=== PATIENT | male | born 1950 | race Two or more races ===

== ENCOUNTER 2021-12-28 15:02 | Inpatient (IN) | payer MEDICARE, OTHER ==
[~2021-12-28] VITALS: Ht 182.9 cm; Wt 64.0 kg
--- NOTE | 2021-12-28 15:17 | NUR ---
PATIENT FROM [facility]-[phone]
--- NOTE | 2021-12-28 15:17 | NUR ---
To ER bed 8, anselmo TERAN from SNf for worsening cough and congestion and chf, aaox3, breathing even and non labored, connected to monitor, awaiting md rees
--- NOTE | 2021-12-28 15:24 | NUR ---
DR ECHEVERRIA AT BEDSIDE
--- NOTE | 2021-12-28 15:46 | NUR ---
COVID SWAB DONE AND SENT TO LAB
[2021-12-28] MEDS ORDERED: CARB1TAB21 PO (16:01)
[2021-12-28] MEDS ORDERED: ROSU5TAB PO (16:01)
[2021-12-28] MEDS ORDERED: GABA-532 PO (16:01)
[2021-12-28] MEDS ORDERED: LOSA50TA39 PO (16:01)
[2021-12-28] MEDS ORDERED: TIZA4TAB5 PO (16:01)
[2021-12-28] MEDS ORDERED: SENN-291 PO (16:01)
[2021-12-28] MEDS ORDERED: MAGN400O6 PO (16:01)
[2021-12-28] MEDS ORDERED: CYAN100096 PO (16:01)
[2021-12-28] MEDS ORDERED: CHOL50002 PO (16:01)
[2021-12-28] MEDS ORDERED: MULT-439 PO (16:01)
[2021-12-28] MEDS ORDERED: CARV3.12 PO (16:01)
[2021-12-28] MEDS ORDERED: IPRA3AMP23 IH (16:01)
[2021-12-28] MEDS ORDERED: AMLO5TAB4 PO (16:01)
[2021-12-28] MEDS ORDERED: OMEP40CA21 PO (16:01)
[2021-12-28] MEDS ORDERED: ACET325T53 PO (16:01)
--- NOTE | 2021-12-28 16:09 | NUR ---
CALLED NURSE SUP FOR MIDLINE NURSE
[2021-12-28 16:18] LABS: HEMATOCRIT 35 % (39-51); HEMOGLOBIN 11.7 g/dL (13.5-17.5); MEAN CORPUSCULAR HGB CONC 34 g/dl (31.0-36.0); MEAN CORPUSCULAR VOLUME 91 fL (80-96); PLATELET COUNT (AUTO) 251 K/uL (150-450); WHITE BLOOD COUNT (AUTO) 4.1 K/uL (4.3-11.0)
[2021-12-28 16:19] LABS: BASOPHILS % (AUTO) 1.2 % (0.0-2.0); EOSINOPHILS % (AUTO) 3.1 % (0.0-6.0); LYMPHOCYTES # (AUTO) 1.5 K/uL (0.8-4.8); LYMPHOCYTES % (AUTO) 37.8 % (20.0-44.0); MONOCYTES # (AUTO) 0.4 K/uL (0.1-1.30); MONOCYTES % (AUTO) 10.9 % (2.0-12.0); NEUTROPHILS # (AUTO) 1.9 K/uL (1.8-8.9)
[2021-12-28] MEDS ORDERED: ACETAMINOPHEN 325 MG TABLET ONE (16:23)
--- NOTE | 2021-12-28 16:25 | NUR ---
BOILERMAKER INDUSTRIAL BOILERS AT BEDSIDE FOR XRAY
[2021-12-28 16:29] LABS: CALCIUM, SERUM 9.3 mg/dL (8.5-10.1); CARBON DIOXIDE 30 mmol/L (21-32); CHLORIDE 100 mmol/L (98-107); CREATININE 0.7 mg/dL (0.6-1.3); GLUCOSE 98 mg/dL (74-106); POTASSIUM 4.2 mmol/L (3.5-5.1); SODIUM SERUM 134 mmol/L (136-145); UREA NITROGEN, BLOOD 8 mg/dL (7-18)
[2021-12-28] MEDS ORDERED: ACETAMINOPHEN 325 MG TABLET PO ONE (16:30)
[2021-12-28 16:44] LABS: ALANINE AMINOTRANSFERASE 11 U/L (12-78); ALBUMIN 3.8 g/dL (3.4-5.0); ALKALINE PHOSPHATASE 68 U/L (46-116); ASPARTATE AMINOTRANSFERASE 21 U/L (15-37); BILIRUBIN,DIRECT 0.1 mg/dL (0.0-0.2); BILIRUBIN,TOTAL 0.3 mg/dL (0.2-1.0); TOTAL PROTEIN, SERUM 8.3 g/dL (6.4-8.2)
--- NOTE | 2021-12-28 16:59 | NUR ---
MIDLINE NURSE AT BEDSIDE
[2021-12-28] MEDS ORDERED: FUROSEMIDE 20 MG/2 ML VIAL IV ONE (18:30)
[2021-12-28] MEDS ORDERED: Medication Not On Formulary EA (Ipratropium/Albuterol Sulfate (Duoneb 2.5-0.5 Mg/3 Ml So IH SCH (18:30)
[2021-12-28] MEDS ORDERED: ACETAMINOPHEN 325 MG TABLET PO PRN (18:30)
[2021-12-28] MEDS ORDERED: CHOLECALCIFEROL PO SCH (18:30)
[2021-12-28] MEDS ORDERED: ONDANSETRON HCL/PF 4 MG/2 ML VIAL IVP PRN (18:30)
[2021-12-28] MEDS ORDERED: MAG HYDROX/AL HYDROX/SIMETH 30 ML UDC PO PRN (18:30)
[2021-12-28] MEDS ORDERED: Z GUARD REMEDY 4 OZ OINT TP PRN (18:30)
--- NOTE | 2021-12-28 18:30 | NUR ---
BED 304-1
--- NOTE | 2021-12-28 18:36 | NUR ---
REPORT GIVEN TO KARIN CANADA OF TELE UNIT
--- NOTE | 2021-12-28 19:30 | NUR ---
MINING TEACHER OPENING NOTE RECEIVED PATIENT IN BED; AWAKE, ALERT AND ORIENTED X 3. BREATHING EVEN AND NONLABORED. ON ROOM AIR; TOLERATING WELL. NOT IN ANY FORM OF RESPIRATORY DISTRESS. ABLE TO MAKE NEEDS KNOWN. WITH MIDLINE @ RIGHT UPPER ARM 18g; PATENT, INTACT AND SALINE LOCKED. SAFETY MEASURES IMPLEMENTED: CALL LIGHT AND TABLE WITH REACH, SIDE RAILS UP X2, BED IN LOWEST LOCKED POSITION. WILL CONTINUE PLAN OF CARE.
[2021-12-28 20:00] VITALS: BP 146/76
[2021-12-28] MEDS: HYDROMORPHONE 1 MG/1 ML DISP.SYRIN IV PRN (20:29)
[2021-12-28] MEDS: ALBUTEROL FS 2.5 MG/0.5 ML VIAL.NEB NEB SCH (20:31)
[2021-12-28] MEDS: IPRATROPIUM NEB FS 0.5 MG/2.5 ML AMPUL.NEB NEB SCH (20:31)
[2021-12-28] MEDS: ATORVASTATIN 10 MG TABLET PO SCH (21:30)
[2021-12-28] MEDS ORDERED: ZOLPIDEM TARTRATE 5 MG TABLET PO PRN (22:00)
[2021-12-28] MEDS ORDERED: Medication Not On Formulary EA (Rosuvastatin Calcium (Crestor) 5 MG) PO SCH (22:00)
[2021-12-28] MEDS ORDERED: MAGNESIUM HYDROXIDE 30 ML UDC PO PRN (22:00)
[2021-12-29] VITALS: BP 127/63
[2021-12-29] MEDS: IPRATROPIUM NEB FS 0.5 MG/2.5 ML AMPUL.NEB NEB SCH ×4 (01:17→20:16)
[2021-12-29] MEDS: ALBUTEROL FS 2.5 MG/0.5 ML VIAL.NEB NEB SCH ×4 (01:17→20:16)
[2021-12-29] MEDS: HYDROMORPHONE 1 MG/1 ML DISP.SYRIN IV PRN ×2 (02:40→10:59)
[2021-12-29 04:00] VITALS: BP 109/58
--- NOTE | 2021-12-29 06:50 | NUR ---
HEALTH INSURANCE ADJUSTER CLOSING NOTE PATIENT IN BED; AWAKE, A/O X 3. BREATHING EVEN AND NONLABORED. STABLE ON ROOM AIR. IN NO ACUTE DISTRESS. WITH MIDLINE @ RIGHT UPPER ARM 18g; PATENT, INTACT AND SALINE LOCKED. ALL NEEDS MET SAFETY MEASURES IN PLACE: CALL LIGHT AND TABLE WITH REACH, SIDE RAILS UP X2, BED IN LOWEST LOCKED POSITION. ENDORSED TO ANI RN FOR GERMAN.
--- NOTE | 2021-12-29 07:29 | NUR ---
CLIPPER MACHINE OPERATOR OPENING NOTES RECEIVED PATIENT SLEEPS IN BED. OPENS HIS EYES UPON CALLING HIS NAME. PATIENT IS ALERT AND ORIENTED TIMES 3. NO PAIN NOTED. NO SOB NOTED. NO DISTRESS NOTED. ON TELE MONITOR READING SR 60. IV ACCESS ON THE RIGHT UPPER MIDLINE INTACT. PATIENT AMBULATORY AND USING URINAL. ALL THE SAFETY MEASURES IN PLACE. BED LOCKED IN THE LOWEST POSITION. CALL LIGHT AND TABLE IN EASY REACH. WILL CONTINUE TO MONITOR.
[2021-12-29 08:00] VITALS: BP 117/60
[2021-12-29] MEDS: PANTOPRAZOLE 40 MG TABLET.DR PO SCH (08:01)
[2021-12-29] MEDS: TIZANIDINE HCL 4 MG TABLET PO SCH ×3 (08:21→16:50)
[2021-12-29] MEDS: CYANOCOBALAMIN 500 MCG TABLET PO SCH (08:21)
[2021-12-29] MEDS: GABAPENTIN 100 MG CAPSULE PO SCH ×3 (08:21→16:50)
[2021-12-29] MEDS: MULTIVIT W/MINERALS 1 TAB TABLET PO SCH (08:21)
[2021-12-29] MEDS: CARBIDOPA/LEVODOPA 25/100 MG 1 UDTAB PO SCH ×3 (08:21→16:50)
[2021-12-29] MEDS: MAGNESIUM HYDROXIDE 30 ML UDC PO SCH ×2 (08:22→08:54)
[2021-12-29] MEDS: CARVEDILOL 3.125 MG TABLET PO SCH ×2 (08:22→16:49)
[2021-12-29] MEDS: LOSARTAN POTASSIUM 50 MG TABLET PO SCH (08:22)
[2021-12-29] MEDS: AMLODIPINE BESYLATE 5 MG TABLET PO SCH (08:22)
[2021-12-29] MEDS ORDERED: CYANOCOBALAMIN 1000 MCG PO SCH (09:00)
[2021-12-29] MEDS ORDERED: Medication Not On Formulary EA (Omeprazole 40 MG) PO SCH (09:00)
[2021-12-29] MEDS ORDERED: CARBIDOPA/LEVODOPA 25/100 MG 1 UDTAB PO SCH (09:00)
[2021-12-29] MEDS ORDERED: Medication Not On Formulary EA (Multivitamins W-Minerals (One Daily Complete) 1 EACH) PO SCH (09:00)
[2021-12-29 11:27] LABS: BASOPHILS % (AUTO) 0.1 % (0.0-2.0); EOSINOPHILS % (AUTO) 1.2 % (0.0-6.0); HEMATOCRIT 31 % (39-51); HEMOGLOBIN 10.5 g/dL (13.5-17.5); LYMPHOCYTES # (AUTO) 1.2 K/uL (0.8-4.8); LYMPHOCYTES % (AUTO) 20.7 % (20.0-44.0); MEAN CORPUSCULAR HGB CONC 34 g/dl (31.0-36.0); MEAN CORPUSCULAR VOLUME 91 fL (80-96); MONOCYTES # (AUTO) 0.7 K/uL (0.1-1.30); NEUTROPHILS # (AUTO) 3.8 K/uL (1.8-8.9); PLATELET COUNT (AUTO) 256 K/uL (150-450); RED BLOOD CELL COUNT(AUTO) 3.39 MIL/uL (4.5-6.0); WHITE BLOOD COUNT (AUTO) 5.8 K/uL (4.3-11.0)
[2021-12-29 11:42] LABS: CALCIUM, SERUM 8.7 mg/dL (8.5-10.1); CREATININE 0.7 mg/dL (0.6-1.3); PHOSPHORUS 4.2 mg/dL (2.5-4.9); POTASSIUM 3.5 mmol/L (3.5-5.1)
[2021-12-29 12:00] VITALS: BP 123/98
[2021-12-29 16:00] VITALS: BP 98/50
[2021-12-29] MEDS: HYDROMORPHONE INJ 2 MG/ML DISP.SYRIN IV PRN (17:39)
[2021-12-29] MEDS: SENNOSIDES 8.6 MG TABLET PO SCH (18:00)
[2021-12-29] MEDS: DOCUSATE SODIUM 100 MG CAPSULE PO SCH (18:00)
[2021-12-29] MEDS ORDERED: SENNOSIDES/DOCUSATE SODIUM 1 UDTAB TABLET PO SCH (18:00)
[2021-12-29 20:00] VITALS: BP 118/59
[2021-12-29] MEDS: ATORVASTATIN 10 MG TABLET PO SCH (21:12)
[2021-12-30] VITALS: BP 129/42
[2021-12-30] MEDS: HYDROMORPHONE INJ 2 MG/ML DISP.SYRIN IV PRN ×3 (00:26→18:18)
[2021-12-30] MEDS: IPRATROPIUM NEB FS 0.5 MG/2.5 ML AMPUL.NEB NEB SCH ×4 (01:30→20:01)
[2021-12-30] MEDS: ALBUTEROL FS 2.5 MG/0.5 ML VIAL.NEB NEB SCH ×4 (01:30→20:01)
[2021-12-30] MEDS: ACETAMINOPHEN 325 MG TABLET PO PRN ×2 (03:15→23:02)
[2021-12-30 04:00] VITALS: BP 110/52
--- NOTE | 2021-12-30 06:25 | NUR ---
DIRECTOR OF OUTSIDE SALES CLOSING NOTES PATIENT SLEEPS IN BED. OPENS HIS EYES UPON CALLING HIS NAME. PATIENT IS ALERT AND ORIENTED TIMES 3. NO PAIN NOTED. NO SOB NOTED. NO DISTRESS NOTED. ON TELE MONITOR READING SR . IV ACCESS ON THE RIGHT UPPER MIDLINE INTACT. PATIENT AMBULATORY AND USING URINAL. ALL DUE MEDS GIVEN ORDERED. ALL THE SAFETY MEASURES IN PLACE. BED LOCKED IN THE LOWEST POSITION. CALL LIGHT AND TABLE IN EASY REACH. WILL ENDORSE FOR GERMAN.
--- NOTE | 2021-12-30 07:26 | NUR ---
WOOL TAMPER OPENING NOTE RECEIVED PT ASLEEP IN BED, EASILY AROUSED. PT A/O X3, ABLE TO MAKE NEEDS KNOWN. ON RA, TOLERATING WELL. NO SOB NOTED. NOT IN ANY SIGN OF RESPIRATORY DISTRESS. ON TELE DISTRICT COURT JUSTICE WITH CURRENT READING OF SINUS RHYTHM WITH PACS AND PVCS, HR 58. NO C/O CARDIAC DISTRESS VOICED OUT AT THIS TIME. IV ACCESS IN JOSEPH MIDLINE SALINE LOCK, INTACT AND PATENT. SAFETY MEASURES IN PLACE: BED IN LOWEST AND LOCKED POSITION, SIDE RAILS UPX2, BED ALARM ON, AND CALL LIGHT WITHIN REACH. WILL CONTINUE TO MONITOR PT.
[2021-12-30 08:00] VITALS: BP 102/50
[2021-12-30] MEDS: PANTOPRAZOLE 40 MG TABLET.DR PO SCH (08:26)
[2021-12-30] MEDS: LOSARTAN POTASSIUM 50 MG TABLET PO SCH (09:00)
[2021-12-30] MEDS: AMLODIPINE BESYLATE 5 MG TABLET PO SCH (09:00)
[2021-12-30] MEDS: CARVEDILOL 3.125 MG TABLET PO SCH ×2 (09:00→17:00)
[2021-12-30] MEDS: CYANOCOBALAMIN 500 MCG TABLET PO SCH (09:13)
[2021-12-30] MEDS: CARBIDOPA/LEVODOPA 25/100 MG 1 UDTAB PO SCH ×3 (09:13→17:17)
[2021-12-30] MEDS: MULTIVIT W/MINERALS 1 TAB TABLET PO SCH (09:13)
[2021-12-30] MEDS: GABAPENTIN 100 MG CAPSULE PO SCH ×3 (09:13→17:17)
[2021-12-30] MEDS: MAGNESIUM HYDROXIDE 30 ML UDC PO SCH (09:14)
[2021-12-30] MEDS: TIZANIDINE HCL 4 MG TABLET PO SCH ×3 (09:14→17:17)
--- NOTE | 2021-12-30 11:15 | NUR ---
RN NOTE PT C/O BACK PAIN WITH PAIN SCALE LEVEL OF 8/10 AND REQUESTED FOR DILAUDID. DILAUDID 2MG ADMINISTERED ORDERED Q6HRS FOR SEVERE PAIN. WILL MONITOR AND REASSESS PT.
[2021-12-30 16:00] VITALS: BP 124/60
[2021-12-30] MEDS: SENNOSIDES 8.6 MG TABLET PO SCH (17:17)
[2021-12-30] MEDS: DOCUSATE SODIUM 100 MG CAPSULE PO SCH (17:17)
--- NOTE | 2021-12-30 18:20 | NUR ---
RN NOTE PT C/O BACK PAIN WITH PAIN SCALE LEVEL OF 8/10 AND REQUESTED FOR DILAUDID. DILAUDID 2MG ADMINISTERED ORDERED Q6HRS FOR SEVERE PAIN. CURRENT BP IS 119/68, R 18. WILL MONITOR AND REASSESS PT.
--- NOTE | 2021-12-30 18:52 | NUR ---
TIE UP WORKER CLOSING NOTE PT AWAKE AND RESTING IN BED. PT A/O X3, ABLE TO MAKE NEEDS KNOWN. ON RA, TOLERATING WELL. NO SOB NOTED. NOT IN ANY SIGN OF RESPIRATORY DISTRESS. PT REMOVED HIS TELE SUPERVISOR DECORATING AND REFUSED TO PUT IT BACK ON. EXPLAINED RISK AND BENEFITS X3, STILL STRONGLY REFUSED. PER PT IT'S UNCOMFORBLE IN HIS BODY. NO C/O CARDIAC DISTRESS VOICED OUT AT THIS TIME. TELE BOX GIVEN TO STONECUTTER ASSISTANT, DAVID. IV ACCESS IN JOSEPH MIDLINE SALINE LOCK, INTACT AND PATENT. ALL NEEDS ATTENDED. KEPT CLEAN AND COMFORTABLE. SAFETY MEASURES IN PLACE: BED IN LOWEST AND LOCKED POSITION, SIDE RAILS UPX2, BED ALARM ON, AND CALL LIGHT WITHIN REACH. WILL ENDORSE TO DOMINIK KAPADIA NURSE FOR GERMAN.
--- NOTE | 2021-12-30 19:27 | NUR ---
RN OPENING NOTES RECEIVED PT SITTING IN BED, AWAKE, EATING AND WATCHING TV. AOx3, ABLE TO MAKE NEEDS KNOWN. ON RA AND TOLERATING WELL. NO SOB NOTED. NO S/SX OF RESPIRATORY DISTRESS NOTED. PT REFUSES TELE MONITOR. IV ACCESS IN JOSEPH MIDLINE. IV IS INTACT, PATENT, AND FLUSHING WELL. SAFETY PRECAUTIONS IN PLACE: BED IN LOWEST, LOCKED POSITION, SIDERAILS UPx2, AND BRAKES ON. TABLE AND CALL LIGHT WITHIN REACH. ALL NEEDS MET AT THIS TIME.
[2021-12-30 20:00] VITALS: BP 129/63
[2021-12-30] MEDS: ATORVASTATIN 10 MG TABLET PO SCH (21:03)
--- NOTE | 2021-12-30 23:02 | NUR ---
RN NOTES ADMINISTERED TYLENOL FOR HEADACHE PER PT REQUEST.
[2021-12-31] VITALS: BP 136/73
[2021-12-31] MEDS ORDERED: BENZONATATE 100 MG CAPSULE PO PRN ×2 (01:00)
[2021-12-31] MEDS: HYDROMORPHONE INJ 2 MG/ML DISP.SYRIN IV PRN ×3 (01:05→14:17)
--- NOTE | 2021-12-31 01:05 | NUR ---
RN NOTES ADMINISTERED DILAUDID FOR PAIN PER MD ORDER. VS WNL.
[2021-12-31] MEDS: ALBUTEROL FS 2.5 MG/0.5 ML VIAL.NEB NEB SCH ×3 (01:22→12:45)
[2021-12-31] MEDS: IPRATROPIUM NEB FS 0.5 MG/2.5 ML AMPUL.NEB NEB SCH ×3 (01:23→12:45)
[2021-12-31 04:00] VITALS: BP 126/65
--- NOTE | 2021-12-31 06:50 | NUR ---
RN CLOSING NOTES RECEIVED PT IN BED, ASLEEP, AWAKENS TO VERBAL STIMULI. AOx3, ABLE TO MAKE NEEDS KNOWN. ON RA AND TOLERATING WELL. NO SOB NOTED. NO S/SX OF RESPIRATORY DISTRESS NOTED. PT REFUSES TELE MONITOR. IV ACCESS IN JOSEPH MIDLINE. IV IS INTACT, PATENT, AND FLUSHING WELL. ALL ORDERS CARRIED OUT. ALL NEEDS MET PT KEPT CLEAN AND DRY. SAFETY PRECAUTIONS IN PLACE: BED IN LOWEST, LOCKED POSITION, SIDERAILS UPx2, AND BRAKES ON. TABLE AND CALL LIGHT WITHIN REACH. WILL ENDORSE TO ONCOMING SHIFT FOR GERMAN.
--- NOTE | 2021-12-31 07:20 | NUR ---
CREATIVE SERVICES WRITER OPENING NOTES: RECEIVED PATIENT IN BED ASLEEP, EASILY AROUSED WITH VERBAL STIMULI. PATIENT ALERT AND ORIENTED X 3 AND ABLE TO VERBALIZED NEEDS,NO SOB OR CARDIAC DISTRESS NOTED. PATIENT IS TELE PT BUT REFUSED TO HAVE A MACHINE I TRIMMER. EXPLAINED THE RISK AND BENEFITS, PT VERBALIZED UNDERSTANDING. KEPT RESTED AND COMFORTABLE. SAFETY PRECAUTIONS MAINTAINED: BED LOCKED AND IN LOWEST POSITION. CALL LIGHT IN EASY REACH. WILL MONITOR PT ACCORDINGLY.
[2021-12-31] MEDS: PANTOPRAZOLE 40 MG TABLET.DR PO SCH (07:41)
[2021-12-31 08:00] VITALS: BP 120/53
[2021-12-31] MEDS: CYANOCOBALAMIN 500 MCG TABLET PO SCH (08:13)
[2021-12-31] MEDS: MULTIVIT W/MINERALS 1 TAB TABLET PO SCH (08:13)
[2021-12-31] MEDS: GABAPENTIN 100 MG CAPSULE PO SCH ×2 (08:13→13:04)
[2021-12-31] MEDS: LOSARTAN POTASSIUM 50 MG TABLET PO SCH (08:14)
[2021-12-31] MEDS: TIZANIDINE HCL 4 MG TABLET PO SCH ×2 (08:15→13:04)
[2021-12-31] MEDS: AMLODIPINE BESYLATE 5 MG TABLET PO SCH (08:15)
[2021-12-31] MEDS: CARBIDOPA/LEVODOPA 25/100 MG 1 UDTAB PO SCH ×2 (08:16→13:04)
[2021-12-31 08:21] VITALS: BP 120/53
[2021-12-31] MEDS: CARVEDILOL 3.125 MG TABLET PO SCH (08:21)
[2021-12-31] MEDS: MAGNESIUM HYDROXIDE 30 ML UDC PO SCH (08:22)
--- NOTE | 2021-12-31 08:22 | NUR ---
RN NOTES: PATIENT REFUSED MILK OF MAGNESIA. PATIENT HAD 2 BP MEDS, AND DIASTOLIC IS IN LOWS, HR 60. COREG ON HOLD/REFUSED.
[2021-12-31 10:20] LABS: ABG BASE EXCESS 3.6 mmol/L; ABG PCO2 43.2 mmHg (35.0-45.0); ABG PH 7.434 (7.350-7.450); ABG PO2 60.9 mmHg (75.0-100.0); AaDO2 37.1 mmHg; COHb 0.3 % (0.5-1.5); MetHb 0.2 % (0.0-1.5); O2Hb 90.5 % (94.0-97.0); SITE, ABG Right Radial
[2021-12-31] MEDS ORDERED: ALBU2.5V13 NEB (12:14)
[2021-12-31] MEDS ORDERED: Multivit W/Minerals PO (12:14)
[2021-12-31] MEDS ORDERED: ATOR10TA PO ×2 (12:14→16:05)
[2021-12-31] MEDS ORDERED: IPRA0.2S9 NEB (12:14)
[2021-12-31] MEDS ORDERED: PANT40TA49 PO (12:14)
[2021-12-31] MEDS ORDERED: Carbidopa/Levodopa 25/100 Mg PO (12:14)
[2021-12-31] MEDS ORDERED: CYAN500T64 PO (12:14)
[2021-12-31] MEDS ORDERED: SENN-175 PO (12:14)
[2021-12-31] MEDS ORDERED: DOCU100C36 PO (12:14)
[2021-12-31] MEDS ORDERED: BENZ-38 PO (12:14)
[2021-12-31] MEDS ORDERED: HYDR-3980 PO (12:14)
--- NOTE | 2021-12-31 15:51 | NUR ---
RN NOTES: PATIENT TRANSFERRED TO GPS UNIT. PATIENT ALERT AND ORIENTED X 3 WITH FORGETFULNESS. NO SOB OR CARDIAC DISTRESS NOTED. PHOTOS TAKEN AND FILED TO HIS CHART. ALL BELONGINGS WITH THE PT AND UNABLE TO SIGN BECAUSE HE IS SHAKING. TRANSFERRED PT VIA WHEELCHAIR ACCOMPANIED BY RN AND SPIRAL MACHINE OPERATOR HAD BED SIDE ENDORSEMENT REPORT GIVEN AND PACKET TO [facility]. PT REMAINED STABLE.
[2021-12-31] MEDS ORDERED: IPRA0.2S9 IH (16:05)
[2021-12-31] MEDS ORDERED: DOCU-141 PO (16:05)
[2021-12-31] MEDS ORDERED: ALLA266C2 TP (16:05)
[2021-12-31] MEDS ORDERED: PANT40TA2 PO (16:05)
[2021-12-31] MEDS ORDERED: ERGO500093 PO (16:05)
[2021-12-31] MEDS ORDERED: MAGN400O6 PO (16:05)
[2021-12-31] MEDS ORDERED: MAG30ORA PO (16:05)
[2021-12-31] MEDS ORDERED: SENN-261 PO (16:05)
[2021-12-31] MEDS ORDERED: BENZ200C53 PO (16:05)
[2021-12-31] MEDS ORDERED: ALBU2.5V38 IH (16:05)
[2022-01-01] MEDS ORDERED: ERGOCALCIFEROL (VITAMIN D 2) 50,000 UNIT CAPSULE PO SCH (09:00)
== END 2021-12-31 15:40 | DRG 640 ==
LOC: ER 15:13 → TELE 18:35
PROVIDERS: ADMIT Nurse Practitioner Acute Care; ATTEND Nurse Practitioner Acute Care
PROC: 05H933Z Insertion of Infusion Device into Right Brachial Vein, Percutaneous Approach (ICD-10-PCS; principal; 2021-12-28)
DX: R62.7 Adult failure to thrive (principal); J96.00 Acute respiratory failure, unspecified whether with hypoxia or hypercapnia; I48.20 Chronic atrial fibrillation, unspecified; K21.9 Gastro-esophageal reflux disease without esophagitis; F25.9 Schizoaffective disorder, unspecified; Z86.73 Personal history of transient ischemic attack (TIA), and cerebral infarction without residual deficits; G20 Parkinson's disease; F02.80 Dementia in other diseases classified elsewhere, unspecified severity, without behavioral disturbance, psychotic disturbance, mood disturbance, and anxiety; N40.0 Benign prostatic hyperplasia without lower urinary tract symptoms; R13.10 Dysphagia, unspecified; Z91.81 History of falling; M19.90 Unspecified osteoarthritis, unspecified site; Z88.8 Allergy status to other drugs, medicaments and biological substances; E78.5 Hyperlipidemia, unspecified; Z79.51 Long term (current) use of inhaled steroids; Z79.899 Other long term (current) drug therapy; Z87.311 Personal history of (healed) other pathological fracture; G89.4 Chronic pain syndrome; I10 Essential (primary) hypertension; F39 Unspecified mood [affective] disorder; F03.90 Unspecified dementia, unspecified severity, without behavioral disturbance, psychotic disturbance, mood disturbance, and anxiety
CPT/HCPCS: 36410; 36415; 36600; 71045-TC; 80048-TC; 80076-TC; 82803-TC; 83735-TC; 83880; 84100-TC; 84484-TC; 85025-TC; 85730-TC; 87081-TC; 92526; 92611-TC; 93307-TC; C9803; G0378; J1170; J1940

== ENCOUNTER 2021-12-31 15:15 | Inpatient (IN) | payer MEDICARE, OTHER ==
[~2021-12-31] VITALS: Ht 182.9 cm; Wt 64.0 kg
[~2021-12-31 15:15] MED LIST: ACET325T53 PO; ALBU2.5V13 NEB; AMLO5TAB4 PO; ATOR10TA PO; BENZ-38 PO; CARB1TAB21 PO; CARV3.12 PO; CHOL50002 PO; CYAN100096 PO; CYAN500T64 PO; Carbidopa/Levodopa 25/100 Mg PO; DOCU100C36 PO; GABA-532 PO; HYDR-3980 PO; IPRA0.2S9 NEB; IPRA3AMP23 IH; LOSA50TA39 PO; MAGN400O6 PO; MULT-439 PO; Multivit W/Minerals PO; OMEP40CA21 PO; PANT40TA49 PO; ROSU5TAB PO; SENN-175 PO; SENN-291 PO; TIZA4TAB5 PO
[2021-12-31 16:00] VITALS: BP 130/75
[2021-12-31] MEDS ORDERED: LORAZEPAM 0.5 MG TABLET PO PRN (16:00)
[2021-12-31] MEDS ORDERED: MAGNESIUM HYDROXIDE 30 ML UDC PO PRN ×2 (16:00→17:00)
[2021-12-31] MEDS ORDERED: ACETAMINOPHEN 325 MG TABLET PO PRN ×2 (16:00→17:00)
[2021-12-31] MEDS ORDERED: MAG HYDROX/AL HYDROX/SIMETH 30 ML UDC PO PRN ×2 (16:00→17:00)
[2021-12-31] MEDS ORDERED: BLOOD SUGAR DIAGNOSTIC 1 EACH STRIP IN ONE (16:00)
--- NOTE | 2021-12-31 16:00 | NUR ---
RN-CO: DR BOO WAS NOTIFIED AND GAVE ADMITTING ORDER, INSURANCE INVESTIGATOR LAURA FRANKS MADE AWARE OF THE ADMISSION AND WILL RECONCILE MEDICATIONS. PT REFUSED PHOTOS, MRSA, AND BLOOD SUGAR.
[2021-12-31] MEDS ORDERED: ALBU2.5V38 IH (16:05)
[2021-12-31] MEDS ORDERED: BENZ200C53 PO (16:05)
[2021-12-31] MEDS ORDERED: ATOR10TA PO (16:05)
[2021-12-31] MEDS ORDERED: SENN-261 PO (16:05)
[2021-12-31] MEDS ORDERED: MAGN400O6 PO (16:05)
[2021-12-31] MEDS ORDERED: MAG30ORA PO (16:05)
[2021-12-31] MEDS ORDERED: IPRA0.2S9 IH (16:05)
[2021-12-31] MEDS ORDERED: PANT40TA2 PO (16:05)
[2021-12-31] MEDS ORDERED: DOCU-141 PO (16:05)
[2021-12-31] MEDS ORDERED: ALLA266C2 TP (16:05)
[2021-12-31] MEDS ORDERED: ERGO500093 PO (16:05)
[2021-12-31 16:09] VITALS: BP 130/75
[2021-12-31] MEDS: TIZANIDINE HCL 4 MG TABLET PO SCH (17:00)
[2021-12-31] MEDS ORDERED: BENZONATATE 100 MG CAPSULE PO PRN (17:30)
[2021-12-31] MEDS: CARBIDOPA/LEVODOPA 25/100 MG 1 UDTAB PO SCH (17:33)
[2021-12-31] MEDS: CARVEDILOL 3.125 MG TABLET PO SCH (17:33)
[2021-12-31] MEDS: DOCUSATE SODIUM 100 MG CAPSULE PO SCH (18:00)
--- NOTE | 2021-12-31 18:34 | NUR ---
Admitted on 5150 HOLD GD , PER HOLD PT AGITATED ,HE THINKS HE IS KIDNAPPED AND DRUGGED ,POOR INSIGHT ,POOR JUDGMENT, DELUSIONAL AND PARANOID .UPON FACE TO FACE ASSESSMENT PATIENT IS A&O X 3 DEPRESSED ,DISHELVED ,EASILY GETS AGITATED, DISORGANIZED AND MUMBLING TO HIMSELF ,REFUSED TO TAKE ADMISSION PICTURES . 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 PT. IS POOR HISTORIAN, POOR INSIGHT ,POOR JUDGEMENT PT. REFUSED TO SIGNS ADMISSION CONSENT PAPERS , DUE TO MENTAL STATUS , BOTH MD AWARE AND NOTIFIED OF THE ADMISSION, BELONGINGS CONTRABAND WERE DONE , NURSING ASSESSMENT DONE ,PT. RIGHTS DISCUSS BY BANK MESSENGER , PROVIDE THE PT. PATIENT'S RIGHT HAND BOOK GIVEN AND EXPLAINED TO PATIENT ABLE TO VERBALIZE UNDERSTANDING. ENVIRONMENTAL SAFETY CHECK DONE, ENCOURAGED PT. VERBALIZED ANY FEELING CONCERN TO STAFF, ORIENT TO UNIT POLICY, NO ACUTE DISTRESS NOTED,VITAL SIGNS WNL ,DENIES ANY PAIN AT THIS TIME,WILL CONTINUE TO MONITOR FOR Q15 SAFETY ,
[2021-12-31 19:55] VITALS: BP 131/82
[2021-12-31] MEDS: ALBUTEROL FS 2.5 MG/3 ML VIAL.NEB IH SCH (21:00)
[2021-12-31] MEDS: IPRATROPIUM NEB FS 0.5 MG/2.5 ML AMPUL.NEB IH SCH (21:00)
[2021-12-31] MEDS: SENNOSIDES 8.6 MG TABLET PO SCH (21:28)
[2021-12-31] MEDS: ATORVASTATIN 10 MG TABLET PO SCH (21:28)
[2021-12-31] MEDS: TEMAZEPAM 7.5 MG CAPSULE PO PRN (21:29)
[2022-01-01] MEDS: ALBUTEROL FS 2.5 MG/3 ML VIAL.NEB IH SCH ×4 (02:02→20:40)
[2022-01-01] MEDS: IPRATROPIUM NEB FS 0.5 MG/2.5 ML AMPUL.NEB IH SCH ×4 (02:02→20:40)
[2022-01-01] MEDS: PANTOPRAZOLE 40 MG TABLET.DR PO SCH (07:26)
--- NOTE | 2022-01-01 07:35 | NUR ---
RN NOTES AM RECEIVED PT IN BED ASLEEP, EASY TO AROUSE, A&O X 4, INTRODUCED SELF AND HELPED TO MEET NEEDS, HELPED TO REPOSITION AND MADE COMFORTABLE, BED LOW TO FLOOR, ALL WHEELS LOCKED FOR SAFETY, 2 BED RAILS UP FOR SAFETY, ABLE TO MAKE NEEDS KNOWN, TOOK AM PROTONIX PILL WHOLE WITH APPLE SAUCE, GIVEN WATER NO ASPIRATION NOTED, WILL CONTINUE TO MONITOR
[2022-01-01 08:00] VITALS: BP 146/67
[2022-01-01] MEDS: MAGNESIUM HYDROXIDE 30 ML UDC PO SCH (08:04)
[2022-01-01] MEDS: CARBIDOPA/LEVODOPA 25/100 MG 1 UDTAB PO SCH ×3 (08:04→18:05)
[2022-01-01] MEDS: CARVEDILOL 3.125 MG TABLET PO SCH ×2 (08:05→18:06)
[2022-01-01] MEDS: LOSARTAN POTASSIUM 50 MG TABLET PO SCH (09:00)
[2022-01-01] MEDS: MULTIVIT W/MINERALS 1 TAB TABLET PO SCH (10:01)
[2022-01-01] MEDS: CYANOCOBALAMIN 500 MCG TABLET PO SCH (10:01)
[2022-01-01] MEDS: AMLODIPINE BESYLATE 5 MG TABLET PO SCH (10:03)
--- NOTE | 2022-01-01 10:38 | NUR ---
FAHAD Initial Discharge Note: Patient currently resides at [facility] [address] [place] [address]; ([phone]). FAHAD spoke with Humphrey em who stated pt does not want to return back and wants a different facility. FAHAD discussed placement with pt and pt stated he would want a different facility. FAHAD will work with the MD, family, and treatment team to help coordinate appropriate discharge.
--- NOTE | 2022-01-01 10:39 | NUR ---
FAHAD Clinical Note: Pt placed on a 5150 hold for GD. Pt has been paranoid and has thoughts that [place] is trying to kidnap him and drug him. Patient currently resides at [facility] [address] [place] [address]; ([phone]). FAHAD spoke with Humphrey em who stated pt does not want to return back and wants a different facility. SW discussed placement with pt and pt stated he would want a different facility.
--- NOTE | 2022-01-01 10:39 | NUR ---
Treatment Plan: Pt refused to sign treatment plan and was verbally aggressive.
--- NOTE | 2022-01-01 13:14 | NUR ---
SNF Referral: FAHAD sent clinicals to Mario Alberto from [facility] for placement option. SW sent H & P, progress notes, and medication list.
--- NOTE | 2022-01-01 13:18 | NUR ---
FAHAD Family Contact: SW attempted to contact pt's son Moi ([phone]) to gather collateral and discuss treatment/discharge plan. FAHAD left a voicemail.
[2022-01-01 13:19] LABS: CHOLESTEROL 146 mg/dL (<200); HDL CHOLESTEROL 55 mg/dL (40-60); LDL 81 mg/dL (0-99); TRIGLYCERIDES 51 mg/dL (30-150)
[2022-01-01 13:25] LABS: ALBUMIN 3.9 g/dL (3.4-5.0); BILIRUBIN,TOTAL 0.7 mg/dL (0.2-1.0); CALCIUM, SERUM 9.7 mg/dL (8.5-10.1); CREATININE 0.7 mg/dL (0.6-1.3); POTASSIUM 4.3 mmol/L (3.5-5.1); TOTAL PROTEIN, SERUM 7.7 g/dL (6.4-8.2)
[2022-01-01] MEDS: GABAPENTIN 100 MG CAPSULE PO SCH ×2 (14:18→18:05)
[2022-01-01] MEDS: TIZANIDINE HCL 4 MG TABLET PO SCH ×3 (14:20→18:15)
[2022-01-01 15:59] VITALS: BP 100/59
[2022-01-01] MEDS ORDERED: ERGOCALCIFEROL (VITAMIN D 2) 50,000 UNIT CAPSULE PO SCH (17:00)
[2022-01-01] MEDS: DOCUSATE SODIUM 100 MG CAPSULE PO SCH (18:14)
[2022-01-01 20:16] VITALS: BP 101/52
[2022-01-01] MEDS: risperiDONE 0.25 MG TABLET PO SCH (21:44)
[2022-01-01] MEDS: SENNOSIDES 8.6 MG TABLET PO SCH (21:44)
[2022-01-01] MEDS: ATORVASTATIN 10 MG TABLET PO SCH (21:46)
[2022-01-01] MEDS: TEMAZEPAM 7.5 MG CAPSULE PO PRN (21:47)
--- NOTE | 2022-01-01 21:52 | NUR ---
Pt c/o insomnia. Least restrictive measures ineffective. Restoril 7.5 mg po prn given as ordered. Will continue to monitor.
--- NOTE | 2022-01-01 22:50 | NUR ---
Post 1 hr Restoril effective. Pt asleep in bed easy to arouse. Frequent visual check done for safety. Will continue to monitor.
[2022-01-02] MEDS: ALBUTEROL FS 2.5 MG/3 ML VIAL.NEB IH SCH ×4 (01:56→21:11)
[2022-01-02] MEDS: IPRATROPIUM NEB FS 0.5 MG/2.5 ML AMPUL.NEB IH SCH ×4 (01:56→21:11)
[2022-01-02] MEDS: HYDROCODONE/APAP 10/325MG TABLET PO PRN ×2 (07:48→15:22)
[2022-01-02 08:00] VITALS: BP 123/89
[2022-01-02] MEDS: PANTOPRAZOLE 40 MG TABLET.DR PO SCH (08:05)
[2022-01-02] MEDS: CYANOCOBALAMIN 500 MCG TABLET PO SCH (08:05)
[2022-01-02] MEDS: MULTIVIT W/MINERALS 1 TAB TABLET PO SCH (08:05)
[2022-01-02] MEDS: GABAPENTIN 100 MG CAPSULE PO SCH ×3 (08:06→16:12)
[2022-01-02] MEDS: CARVEDILOL 3.125 MG TABLET PO SCH ×2 (08:06→16:12)
[2022-01-02] MEDS: CARBIDOPA/LEVODOPA 25/100 MG 1 UDTAB PO SCH ×3 (08:06→16:12)
[2022-01-02] MEDS: LOSARTAN POTASSIUM 50 MG TABLET PO SCH (08:07)
[2022-01-02] MEDS: AMLODIPINE BESYLATE 5 MG TABLET PO SCH (08:07)
[2022-01-02] MEDS: TIZANIDINE HCL 4 MG TABLET PO SCH ×3 (08:09→16:14)
--- NOTE | 2022-01-02 09:36 | NUR ---
SNF Contact: SW spoke with Mario Alberto em ([phone]) from [facility] who stated pt is accepted.
[2022-01-02] MEDS: MAGNESIUM HYDROXIDE 30 ML UDC PO SCH (09:41)
--- NOTE | 2022-01-02 09:45 | NUR ---
RN-CO:Patient denied pain and discomforts. No acute distress noted. Noted that he is forgetful and paranoid. He does note believe that he belongs in the unit. He stated " these new nurses are full of lies." He denied suicidal ideation. He is redirectable.
--- NOTE | 2022-01-02 15:23 | NUR ---
RN-CO: NORCO 10/ GIVEN FOR C/O PAIN 10/07 ON LOWER BACK.
[2022-01-02 16:00] VITALS: BP 100/58
[2022-01-02] MEDS: DOCUSATE SODIUM 100 MG CAPSULE PO SCH (17:16)
[2022-01-02 20:00] VITALS: BP 110/68
[2022-01-02] MEDS: risperiDONE 0.25 MG TABLET PO SCH (21:02)
[2022-01-02] MEDS: ATORVASTATIN 10 MG TABLET PO SCH (21:02)
[2022-01-02] MEDS: SENNOSIDES 8.6 MG TABLET PO SCH (21:02)
[2022-01-02] MEDS: TEMAZEPAM 7.5 MG CAPSULE PO PRN (22:56)
--- NOTE | 2022-01-02 22:56 | NUR ---
RN note: Patient c/o difficulty falling asleep,requested and given Restoril 7.5 mg PO.He also asked for pain medication,requested and given Tylenol 650 mg PO as ordered.
[2022-01-03] MEDS: IPRATROPIUM NEB FS 0.5 MG/2.5 ML AMPUL.NEB IH SCH ×4 (02:29→20:28)
[2022-01-03] MEDS: ALBUTEROL FS 2.5 MG/3 ML VIAL.NEB IH SCH ×4 (02:29→20:28)
--- NOTE | 2022-01-03 02:33 | NUR ---
RT Pt sleeping, neb tx not given. RN is aware.
[2022-01-03 08:00] VITALS: BP 151/83
[2022-01-03] MEDS: CARBIDOPA/LEVODOPA 25/100 MG 1 UDTAB PO SCH ×3 (08:21→16:19)
[2022-01-03] MEDS: MULTIVIT W/MINERALS 1 TAB TABLET PO SCH (08:21)
[2022-01-03] MEDS: GABAPENTIN 100 MG CAPSULE PO SCH ×3 (08:21→16:19)
[2022-01-03] MEDS: AMLODIPINE BESYLATE 5 MG TABLET PO SCH (08:21)
[2022-01-03] MEDS: LOSARTAN POTASSIUM 50 MG TABLET PO SCH (08:22)
[2022-01-03] MEDS: CARVEDILOL 3.125 MG TABLET PO SCH ×2 (08:22→16:19)
[2022-01-03] MEDS: MAGNESIUM HYDROXIDE 30 ML UDC PO SCH ×2 (08:22→08:31)
[2022-01-03] MEDS: PANTOPRAZOLE 40 MG TABLET.DR PO SCH (08:22)
[2022-01-03] MEDS: CYANOCOBALAMIN 500 MCG TABLET PO SCH (08:25)
[2022-01-03] MEDS: TIZANIDINE HCL 4 MG TABLET PO SCH ×3 (08:26→16:19)
[2022-01-03] MEDS: HYDROCODONE/APAP 10/325MG TABLET PO PRN ×2 (10:01→20:15)
--- NOTE | 2022-01-03 11:00 | NUR ---
RN Notes: Received pt. awake in room, responsive to staffs, no distress and no agitation noted. Ate 75% for breakfast, compliant on meds. Encouraged to verbalize feelings and motivated to attend group activity. Pt. is needy and needs attended and pt. is complaining on back pain and prn med given. Will continue to monitor for safety.
[2022-01-03 16:00] VITALS: BP 122/69
[2022-01-03] MEDS: DOCUSATE SODIUM 100 MG CAPSULE PO SCH (17:25)
[2022-01-03 19:59] VITALS: BP 109/61
--- NOTE | 2022-01-03 20:14 | NUR ---
RN NOTES:RECEIVED PATIENT RESTING IN ROOM, NO S/SX OF ACUTE DISTRESS NOTED. PATIENT REMAINS , ANXIOUS, DISORGANIZED, PARANOID,NEEDY DEMANDING, SUSPICIOUS,GUARDED, FOCUS ON PRN PAIN MEDS,NEEDS FREQUENT REDIRECTION. DENIES SI/HI AT THIS TIME.ENCOURAGE TO VERBALIZED ANY FEELING OR CONCERN, SAFETY MEASURES IN PLACE. WILL CONTINUE TO MONITOR Q15MIN ROUNDS FOR SAFETY AND BEHAVIOR.
--- NOTE | 2022-01-03 20:17 | NUR ---
RN NOTES: PAIN PT. C/O LOWER BACK PAIN 10/07 NORCO GIVEN PER PT. REQUEST, WILL CONTINUE TO MONITOR. .
[2022-01-03] MEDS: risperiDONE 0.25 MG TABLET PO SCH (21:17)
[2022-01-03] MEDS: SENNOSIDES 8.6 MG TABLET PO SCH (21:17)
[2022-01-03] MEDS: ATORVASTATIN 10 MG TABLET PO SCH (21:17)
[2022-01-04] MEDS: ALBUTEROL FS 2.5 MG/3 ML VIAL.NEB IH SCH ×3 (01:30→14:16)
[2022-01-04] MEDS: IPRATROPIUM NEB FS 0.5 MG/2.5 ML AMPUL.NEB IH SCH ×3 (01:30→14:16)
--- NOTE | 2022-01-04 02:01 | NUR ---
RT PT SLEEPING, NEB NOT GIVEN AT THIS TIME. RN IS AWARE.
[2022-01-04] MEDS: HYDROCODONE/APAP 10/325MG TABLET PO PRN ×2 (06:09→12:12)
--- NOTE | 2022-01-04 06:10 | NUR ---
RN NOTES: PAIN PT. C/O LOWER BACK PAIN 10/07 NORCO GIVEN PER PT. REQUEST, WILL CONTINUE TO MONITOR. .
[2022-01-04 08:00] VITALS: BP 115/85
--- NOTE | 2022-01-04 08:11 | NUR ---
SW Discharge Note: Patient will be discharged to longterm facility [facility] [address], [place] [address]; ). Please arrange transportation at 1PM. Zookeeper spoke with Mario Alberto air carrier operations inspector at [facility]; ([phone]), who stated patient will be accepted today. SW attempted to contact pts son Moi ([phone]) and was unavailable, left a detailed voicemail. Patient is alert and oriented x3 and is unable to plan for self-care. Patient denies any suicidal or homicidal ideations. Patient is aware and agreeable with discharge plans. Patient will continue to follow-up with (psychiatrist) Dr. Kim [address], [place] [address]; ([phone]) and (floor cleaner) Dr. Platt [address], [place] [address]; ([phone]). Patient presents with euthymic and congruent mood.
[2022-01-04] MEDS: CARVEDILOL 3.125 MG TABLET PO SCH (08:50)
[2022-01-04 08:51] VITALS: BP 115/85
[2022-01-04] MEDS: LOSARTAN POTASSIUM 50 MG TABLET PO SCH (08:51)
[2022-01-04] MEDS: AMLODIPINE BESYLATE 5 MG TABLET PO SCH (08:51)
[2022-01-04] MEDS: CARBIDOPA/LEVODOPA 25/100 MG 1 UDTAB PO SCH ×2 (08:51→12:42)
[2022-01-04] MEDS: CYANOCOBALAMIN 500 MCG TABLET PO SCH (08:51)
[2022-01-04] MEDS: TIZANIDINE HCL 4 MG TABLET PO SCH ×2 (08:51→12:42)
[2022-01-04] MEDS: PANTOPRAZOLE 40 MG TABLET.DR PO SCH (08:51)
[2022-01-04] MEDS: GABAPENTIN 100 MG CAPSULE PO SCH ×2 (08:51→12:42)
[2022-01-04] MEDS: MULTIVIT W/MINERALS 1 TAB TABLET PO SCH (08:51)
[2022-01-04] MEDS: MAGNESIUM HYDROXIDE 30 ML UDC PO SCH ×2 (08:52→08:58)
--- NOTE | 2022-01-04 09:58 | NUR ---
Dr. Kim gave an order to D/C hold and D/C to [facility] and to follow up with psych and medical doctors. Dr. Kim gave an order to continue same meds including prn. Dr. Platt made aware of the discharge and reconciled on meds to continue in the facility. Pt. without distress, denies suicidal and homicidal. Belongings ready and discharge papers ready.
--- NOTE | 2022-01-04 13:21 | NUR ---
Report given to Rebecca CANADA over the facility. Addendum: 01/04/22 at 1437 by JAMIA GTZ RN Pt. signed the discharge papers.
--- NOTE | 2022-01-04 14:35 | NUR ---
Pt. left the unit via ambulance and transported via a gurney with belongings. Left without distress, v/s taken: BP 121/67, ID 68, RR 18, temp 97.4 and oxygen sat 97%
== END 2022-01-04 14:35 | DRG 885 ==
LOC: GPS 15:15
PROVIDERS: ADMIT Psychiatry & Neurology Psychosomatic Medicine; ATTEND Internal Medicine
DX: F29 Unspecified psychosis not due to a substance or known physiological condition (principal); I11.0 Hypertensive heart disease with heart failure; I48.20 Chronic atrial fibrillation, unspecified; F02.84 Dementia in other diseases classified elsewhere, unspecified severity, with anxiety; I50.30 Unspecified diastolic (congestive) heart failure; R41.9 Unspecified symptoms and signs involving cognitive functions and awareness; E78.5 Hyperlipidemia, unspecified; F32.A Depression, unspecified; Z20.822 Contact with and (suspected) exposure to COVID-19; K21.9 Gastro-esophageal reflux disease without esophagitis; Z86.73 Personal history of transient ischemic attack (TIA), and cerebral infarction without residual deficits; G20 Parkinson's disease; G62.9 Polyneuropathy, unspecified; M54.9 Dorsalgia, unspecified; M62.81 Muscle weakness (generalized); R27.9 Unspecified lack of coordination
CPT/HCPCS: 36415; 80053-TC; 80061-TC; 94799-TC